=== PATIENT | female | born 1980 | race Caucasian/White ===

== ENCOUNTER → 2021-07-09 | Outpatient (CLI) | payer BC | LOC: MC.RAD 13:30 | DX: Z12.31 Encounter for screening mammogram for malignant neoplasm of breast (principal); R92.0 Mammographic microcalcification found on diagnostic imaging of breast ==

== ENCOUNTER → 2021-07-16 | Outpatient (CLI) | payer BC | LOC: MC.RAD 13:00 | DX: R92.0 Mammographic microcalcification found on diagnostic imaging of breast (principal) ==

== ENCOUNTER → 2021-07-22 | Outpatient (CLI) | payer BC | LOC: MC.RAD 07:00 | DX: R92.8 Other abnormal and inconclusive findings on diagnostic imaging of breast (principal); R92.0 Mammographic microcalcification found on diagnostic imaging of breast; Z98.82 Breast implant status ==

== ENCOUNTER → 2022-06-08 | Outpatient (CLI) | payer BC | LOC: COL.VAS 12:16 | DX: I34.0 Nonrheumatic mitral (valve) insufficiency (principal); Z85.9 Personal history of malignant neoplasm, unspecified ==

== ENCOUNTER 2023-09-07 09:16 | Observation (INO) | payer BC ==
[~2023-09-07] VITALS: Ht 162.6 cm; Wt 73.6 kg
[2023-09-07] VITALS (10 sets, daily range): BP systolic 88–124; BP diastolic 51–88; PULSE 68–80; TEMP 98.6–98.7
[2023-09-07 12:39] LABS: EOS % 0.4 % (0.0-4.0); GRAN # 3.2 K/mm3 (1.4-6.5); GRAN % 55.6 % (42.2-75.2); HEMATOCRIT 39.3 % (37.0-47.0); HEMOGLOBIN 13.2 g/dl (12.5-16.0); LYMPH % 35.6 % (20.0-51.0); MEAN CELL VOLUME 88 fl (80.0-100.0); MEAN CORPUSCULAR HEMOGLOBIN 30 pg (27-31); MEAN CORPUSCULAR HGB CONC 34 g/dl (33.0-37.0); MEAN PLATELET VOLUME 9.1 fl (7.4-10.4); MONO # 0.5 K/mm3 (0.1-0.6); MONO % 8.2 % (1.7-9.3); PLATELET COUNT 306 K/mm3 (130-400); RED BLOOD COUNT 4.48 M/mm3 (4.10-5.30); REDCELL DISTRIBUTION WIDTH-CV 13.1 % (11.5-14.5)
[2023-09-07 12:44] LABS: ALBUMIN 3.9 gm/dL (3.5-5.0); BILIRUBIN,TOTAL 0.5 mg/dL (0.2-1.2); C-REACTIVE PROTEIN 0.09 mg/dL (0.00-0.50); CREATININE, serum 0.76 mg/dL (0.57-1.11); POTASSIUM 4.1 mmol/L (3.5-4.5); TOTAL PROTEIN 7.5 gm/dL (6.2-8.1)
[2023-09-07 12:56] LABS: COLLECTION METHOD CLEAN CATCH
[2023-09-07 13:06] LABS: URINE APPEARANCE Clear (CLEAR/HAZY); URINE BLOOD Negative (NEGATIVE); URINE COLOR Yellow (YELLOW); URINE GLUCOSE Negative (NEGATIVE); URINE KETONE 3+ (NEGATIVE); URINE NITRATE Negative (NEGATIVE); URINE PROTEIN(semi-quant) Negative (NEGATIVE); URINE UROBILINOGEN 0.2 E.U/dL (0.2-1.0)
[2023-09-07 13:07] LABS: SQUAMOUS EPITHELIAL 0-2 /hpf (0-10); URINE BACTERIA None Seen /hpf (NONE SEEN); URINE RBC 0-2 /hpf (0-2)
[2023-09-07] MEDS ORDERED: TAMOXIFEN CITRA20 MG PO (16:05)
[2023-09-07] MEDS ORDERED: WEGOVY1 MG/0.5 M SQ (16:06)
--- NOTE | 2023-09-07 20:05 | NUR ---
Pt to room by hospital bed in stable condition. Accompanied by PACU nurse Winsome and . Pt alert and oriented x 4. Lactated ringers infusing by gravity to IV in left forearm. Pt with restricted right extremity due to mastectomy. 3 incisions sites to abdomen covered with bandaids. Small amount of drainage noted on bottom dressing, marked with pen. SCDs applied and on. Pt oriented to room and reviewed plan of care. Encouraged patient to rest and try to take a nap.
--- NOTE | 2023-09-07 21:15 | NUR ---
This RN to bedside. Pt states she needs to use restroom. Assisted patient to sitting on edge of bed. Pt able to ambulate to bathroom with standby assistance, able to void small amount, and ambulate back to bed. Pt states she feels weak walking and was having pain and would like to continue to rest.
--- NOTE | 2023-09-07 21:30 | NUR ---
Pt has been able to tolerate crackers and sips of water. Pain medication given.
--- NOTE | 2023-09-07 23:00 | NUR ---
This RN to bedside to check on patient. Pts spouse very concerned about patients low blood pressure of 88/51 and states that he thinks a doctor needs to come in and check her out. Pt appears to be resting comfortably in bed. Pt denies dizziness, nausea, or feeling light headed. Informed patient and spouse that I would call Dr. Samuels and update him on vital signs.
--- NOTE | 2023-09-07 23:15 | NUR ---
calls nurse to bedside. Patient and spouse state that they want to stay the night tonight since her BP has been low. Will update Dr. Samuels.
--- NOTE | 2023-09-08 | NUR ---
This RN to patients room to update them on plan of care. No new orders from Dr. Samuels regarding blood pressure. Patient and spouse then decide that they would be ok with discharging home tonight.
--- NOTE | 2023-09-08 00:50 | NUR ---
Discharge instructions reviewed with patient and spouse. Verbalized understanding. IV out. Pt off unit by wheelchair with belongings.
== END 2023-09-08 00:55 | disposition home or self-care (01) ==
LOC: COL.ER 09:16 → OB 17:36
PROVIDERS: Nurse Practitioner; ADMIT Obstetrics & Gynecology
DX: D27.1 Benign neoplasm of left ovary (principal); D27.0 Benign neoplasm of right ovary; N83.511 Torsion of right ovary and ovarian pedicle; N83.01 Follicular cyst of right ovary; N83.11 Corpus luteum cyst of right ovary; Z85.3 Personal history of malignant neoplasm of breast; Z90.13 Acquired absence of bilateral breasts and nipples
CPT/HCPCS: J0330; J1100; J1170; J1885; J2270; J2405; J2704; J3010; J7030; Q9967